=== PATIENT | male | born 1965 | race Hispanic/Latino ===

== ENCOUNTER 2019-04-04 05:35 | Day surgery (SDC) | payer OTHER ==
[2019-04-02 12:23] VITALS: BP 127/76
[2019-04-02 12:30] LABS: BASOPHILS % (AUTO) 0.6 % (0.0-5.0); EOSINOPHILS % (AUTO) 2.8 % (0.0-8.0); HEMATOCRIT 46.2 % (42-54); LYMPHOCYTES % (AUTO) 28.2 % (21.0-51.0); MEAN CORPUSCULAR HEMOGLOBIN 30.3 pg (27.0-33.0); MEAN CORPUSCULAR HGB CONC 33.7 g/dL (32.0-36.0); MEAN CORPUSCULAR VOLUME 89.7 fL (79-99); MONOCYTES % (AUTO) 4.6 % (3.0-13.0); NEUTROPHILS % (AUTO) 63.8 % (40.0-77.0); PLATELET COUNT (AUTO) 246 K/uL (130-400); RED BLOOD CELL COUNT(AUTO) 5.15 MIL/uL (4.50-6.20); RED CELL DISTRIBUTION WIDTH 13.2 % (11.0-15.5); WHITE BLOOD COUNT (AUTO) 7.4 K/uL (4.8-10.8)
[2019-04-02 12:37] LABS: CREATININE 0.9 mg/dL (0.5-1.5); POTASSIUM 4.4 mmol/L (3.5-5.1)
[2019-04-02 12:39] LABS: INR 0.96 (0.85-1.15); PARTIAL THROMBOPLASTIN TIME 25.9 SEC (26.3-35.5); PROTHROMBIN TIME 10.1 SEC (9.6-11.6)
[2019-04-02 13:30] LABS: APPEARANCE,URINE CLEAR (CLEAR); BILIRUBIN,URINE SMALL (NEGATIVE); COLOR,URINE YELLOW (YELLOW); GLUCOSE, URINE (UA) 100 mg/dL (NEGATIVE); KETONES,URINE 5 mg/dL (NEGATIVE); LEUKOCYTE ESTERASE ,URINE NEGATIVE (NEGATIVE); NITRATE,URINE NEGATIVE (NEGATIVE); OCCULT BLOOD,URINE NEGATIVE (NEGATIVE); PROTEIN,URINE 100 mg/dL (NEGATIVE); UROBILINOGEN,URINE 0.2 mg/dL (0.2-1.0)
[2019-04-02 13:40] LABS: BACTERIA,URINE Rare /HPF (None Seen); MUCUS,URINE Moderate LPF (None Seen); RBC,URINE 0-1 /HPF (0-1); SQUAMOUS EPITHELIAL CELL,UR Rare /HPF (0-2); WBC,URINE 0-1 /HPF (0-1)
[~2019-04-04] VITALS: Ht 182.9 cm; Wt 121.5 kg
[2019-04-04] VITALS (10 sets, daily range): BP systolic 111–123; BP diastolic 66–78
[~2019-04-04 05:35] MED LIST: ASPI-555 PO; ATOR20TA65 PO; GLIP1TAB6 PO; LISI40TA4 PO; NITR0.4T50 SL; PANT40TA25 PO
--- NOTE | 2019-04-04 05:50 | NUR ---
PATIENT ARRIVED PATIENT ARRIVED TO DAY PATIENT ACCOMPANIED BY SPOUSE, NICK. PATIENT AAOX3, RESPIRATIONS UNLABORED, VITAL SIGNS STABLE, DENIES ANY PAIN AT THIS TIME. PROCEDURE VERIFIED WITH PATIENT AND SPOUSE, BOTH VERBALIZED UNDERSTANDING. ANSWERED ALL QUESTIONS/CONCERNS. SIDE RAILS UP X2, BED IN LOWEST POSITION, CALL FREEMAN WITHIN REACH.
[2019-04-04] MEDS ORDERED: IOHEXOL 350 MG/ML 100ML INFUS..BTL IV ONE (07:25)
[2019-04-04] MEDS ORDERED: IOHEXOL-350 50ML VIAL IV ONE (07:25)
[2019-04-04] MEDS ORDERED: IOHEXOL-350 75 ML VIAL IV ONE (07:25)
[2019-04-04] MEDS ORDERED: NITROGLYCERIN 5 MG/ML 10 ML VIAL IV ONE (07:25)
[2019-04-04] MEDS ORDERED: LIDOCAINE HCL 2% 20ML ONE (07:26)
--- NOTE | 2019-04-04 07:35 | NUR ---
PATIENT TRANSFERRED PATIENT TAKEN TO [facility]O [facility]INTER VIA BED BY RADHA MEREDITH. SPOUSE INSTRUCTED TO WAIT FOR PATIENT AT BEDSIDE IN ORDER TO SPEAK WITH MD AFTER PROCEDURE IS COMPLETE.
[2019-04-04] MEDS ORDERED: SODIUM CHLORIDE 0.9% 1000ML 1,000 ML IV SCH ×2 (08:00→09:01)
[2019-04-04] MEDS ORDERED: MIDAZOLAM HCL 1 MG/ML 2ML VIAL ONE (08:24)
[2019-04-04] MEDS ORDERED: VERAPAMIL HCL 2.5 MG/ML VIAL ONE (08:24)
[2019-04-04] MEDS ORDERED: HEPARIN SODIUM 1000UNIT/ML 10ML VIAL ONE (08:24)
[2019-04-04] MEDS ORDERED: FENTANYL CITRATE PF 50 MCG/1 ML 2ML VIAL ONE (08:24)
--- NOTE | 2019-04-04 09:25 | NUR ---
PATIENT RETURNED PATIENT BROUGHT BACK FROM PROCEDURE BY RADHA MEREDITH. PATIENT AAOX3, RESPIRATIONS UNLABORED, VITAL SIGNS STABLE. DENIES ANY PAIN AT THIS TIME. RIGHT GROIN WITH OP SITE AND GAUZE IN PLACE. NO DRAINAGE NOTED, DRESSING DRY AND INTACT. AREA IS SOFT AND NONTENDER. SPOUSE AT BEDSIDE.
[2019-04-04] MEDS ORDERED: INSULIN HUMULIN R 100 UNIT/ML 3ML SQ SCH (11:30)
--- NOTE | 2019-04-04 14:15 | NUR ---
PATIENT DISCHARGED DISCHARGE INSTRUCTIONS PROVIDED TO PATIENT AND SPOUSE. FOLLOW UP APPOINTMENTS PROVIDED AND INSTRUCTIONS GIVEN ON FEMORAL SITE CARE, HANDOUTS PROVIDED. PATIENT AND SPOUSE VERBALIZED UNDERSTANDING. ALL QUESTIONS/CONCERNS ADDRESSED. PATIENT DISCHARGED FROM HOSPITAL BY WHEELCHAIR AND TAKEN TO PRIVATE VEHICLE.
== END 2019-04-04 14:15 ==
LOC: DAH 05:35
PROVIDERS: ATTEND Internal Medicine Cardiovascular Disease
DX: I20.8 Other forms of angina pectoris (principal); I10 Essential (primary) hypertension; E78.5 Hyperlipidemia, unspecified; K21.9 Gastro-esophageal reflux disease without esophagitis; Z79.899 Other long term (current) drug therapy; Z79.01 Long term (current) use of anticoagulants; Z79.84 Long term (current) use of oral hypoglycemic drugs; Z72.89 Other problems related to lifestyle; Z87.891 Personal history of nicotine dependence; Z82.49 Family history of ischemic heart disease and other diseases of the circulatory system; Z83.3 Family history of diabetes mellitus
CPT/HCPCS: 36415; 71045; 80048; 81001; 82948 ×2; 85025; 85610; 85730; 93005; 93458; A4606; C1760; C1769 ×2; C1894 ×3; J1644 ×2; J1815; J2250; J3010; J3490 ×3; J7030; Q9967 ×2; 99156; 99157